=== PATIENT | male | born 1985 | race Asian ===

== ENCOUNTER 2021-05-30 15:31 | Emergency (ER) | payer OTHER ==
[~2021-05-30] VITALS: Ht 177.8 cm; Wt 81.6 kg
[2021-05-30 16:20] VITALS: BP 131/62; TEMP 97.8
== END 2021-05-30 16:20 | disposition home or self-care (01) ==
LOC: ED 15:31
DX: J06.9 Acute upper respiratory infection, unspecified (principal); J01.80 Other acute sinusitis; R11.0 Nausea; B34.9 Viral infection, unspecified; Z20.822 Contact with and (suspected) exposure to COVID-19
CPT/HCPCS: 87635; 99282; U0003